=== PATIENT | female | born 1960 | race Caucasian/White ===

== ENCOUNTER 2024-05-04 16:09 | Emergency (ER) | payer MEDICARE, MEDICAID ==
[~2024-05-04] VITALS: Ht 165.1 cm; Wt 54.4 kg
[2024-05-04 16:46] LABS: BILIRUBIN Negative (Negative); BLOOD 2+ (Negative); CLARITY Clear (Clear); COLOR Yellow (Yellow); GLUCOSE Negative (Negative); KETONE Trace (Negative); LEUKO ESTERASE 2+ (Negative); NITRITE Negative (Negative); PH 5.5 (4.5-8.0); SPECIFIC GRAVITY 1.025 (1.001-1.030)
[2024-05-04 16:53] LABS: URINE AMPHETAMINES Negative (1000ng/ml); URINE BARBITURATES Positive (200ng/ml); URINE BENZODIAZEPINES Negative (200ng/ml); URINE CANNABINOIDS (THC) Negative (50ng/ml); URINE COCAINE Negative (300ng/ml); URINE METHADONE Negative (300ng/ml); URINE OPIATES Negative (300ng/ml); URINE PHENCYCLIDINE Negative (25ng/ml)
[2024-05-04 16:55] LABS: BASO # 0.1 10*3/uL (0.0-0.1); BASO % 0.9 % (0.0-1.0); EOS # 0.2 10*3/uL (0.0-0.4); EOS % 2.2 % (1.0-4.0); LYMPH # 1.1 10*3/uL (1.3-4.4); LYMPH % 11.7 % (27.0-41.0); MEAN CELL VOLUME 97.4 fl (81.0-99.0); MEAN CORPUSCULAR HGB 31.8 pg (27.0-31.0); MEAN CORPUSCULAR HGB CONC 32.7 g/dl (33.0-37.0); MEAN PLATELET VOLUME 10.3 fl (9.6-12.3); MONO # 0.8 10*3/uL (0.1-1.0); MONO % 8.7 % (3.0-9.0); NEUT # 7.1 10*3/uL (2.3-7.9); PLATELET COUNT AUTOMATED 376 10*3/uL (130-400); RED BLOOD COUNT 4.21 10*6/uL (4.10-5.10); RED CELL DISTRI WIDTH 15.7 % (0-14.5); WHITE BLOOD COUNT 9.3 10*3/uL (4.8-10.8)
[2024-05-04 16:58] LABS: BACTERIA 1+; RBC 21-30 rbc/hpf (0-2); WBC 21-30 wbc/hpf (0-5)
[2024-05-04 16:59] LABS: HYALINE CAST 0-2
[2024-05-04 17:16] LABS: BUN 15 mg/dl (9-23); CHLORIDE 102 mmol/L (98-107); POTASSIUM 4.3 mmol/L (3.4-5.1)
[2024-05-04 17:21] LABS: ETHYL ALCOHOL < 3.0 mg/dl (<3)
[2024-05-04] MEDS ORDERED: Ciprofloxacin Hydrochloride 500 MG TAB PO ONE (17:40)
[2024-05-04 19:00] VITALS: BP 145/73
[2024-05-04 20:13] VITALS: BP 122/64
[2024-05-04] MEDS ORDERED: FEROSUL325 M1 PO (20:14)
[2024-05-04] MEDS ORDERED: JANUMET 50-1,01 EACH PO (20:15)
[2024-05-04] MEDS ORDERED: DICYCLOMINE HYD10 MG PO (20:18)
[2024-05-04] MEDS ORDERED: [UNRECOGNIZED DRUG - OTHER] PO (20:20)
[2024-05-04] MEDS ORDERED: ASPIRIN ADULT L81 M2 PO (20:22)
[2024-05-04] MEDS ORDERED: AZO D-MANNOSE500 MG PO (20:24)
[2024-05-04] MEDS ORDERED: LEVOTHYROXINE75 MCG PO (20:27)
[2024-05-04] MEDS ORDERED: LEVOXYL88 MCG PO (20:28)
[2024-05-04] MEDS ORDERED: MIRALAX POWDER17 G1 PO (20:30)
[2024-05-04] MEDS ORDERED: MULTIPLE VITAM1 EAC1 PO (20:37)
[2024-05-04] MEDS ORDERED: OMEPRAZOLE MAGN20 MG PO (20:39)
[2024-05-04] MEDS ORDERED: MAGNESIUM OXID500 MG PO (20:44)
[2024-05-04] MEDS ORDERED: SENOKOT-S TABL1 EACH PO (20:45)
[2024-05-04] MEDS ORDERED: Mysoline50 MG PO ×3 (20:50→20:55)
[2024-05-04] MEDS ORDERED: VISINE RED EYE H8 ML OD (20:58)
[2024-05-04] MEDS ORDERED: CLARITIN10 MG PO (21:00)
[2024-05-04] MEDS ORDERED: DULCOLAX10 M1 R (21:02)
[2024-05-04] MEDS ORDERED: HYDROXYZINE PAM25 M1 PO (21:08)
== END 2024-05-04 20:20 | disposition home or self-care (01) ==
LOC: ED 16:09 → 3N 18:42 → ED 20:20
PROVIDERS: Emergency Medicine
DX: F63.81 Intermittent explosive disorder (principal); Z20.822 Contact with and (suspected) exposure to COVID-19; N39.0 Urinary tract infection, site not specified; I10 Essential (primary) hypertension; E78.5 Hyperlipidemia, unspecified; F31.9 Bipolar disorder, unspecified; F41.9 Anxiety disorder, unspecified; E11.9 Type 2 diabetes mellitus without complications; Z88.0 Allergy status to penicillin; Z88.2 Allergy status to sulfonamides; Z88.8 Allergy status to other drugs, medicaments and biological substances

== ENCOUNTER 2024-05-04 19:09 | Inpatient (IN) | payer MEDICARE, MEDICAID ==
[~2024-05-04] VITALS: Ht 157.5 cm; Wt 54.4 kg
[2024-05-04] MEDS ORDERED: LORazepam 2 MG/ML VIAL IM PRN (20:05)
[2024-05-04] MEDS ORDERED: LORazepam 1 MG TAB PO PRN (20:05)
[2024-05-04] MEDS ORDERED: Ziprasidone Mesylate 20 MG VIAL IM PRN (20:10)
[2024-05-04] MEDS ORDERED: FEROSUL325 M1 PO (20:14)
[2024-05-04] MEDS ORDERED: JANUMET 50-1,01 EACH PO (20:15)
[2024-05-04] MEDS ORDERED: DICYCLOMINE HYD10 MG PO (20:18)
[2024-05-04] MEDS ORDERED: [UNRECOGNIZED DRUG - OTHER] PO (20:20)
[2024-05-04] MEDS ORDERED: ASPIRIN ADULT L81 M2 PO (20:22)
[2024-05-04] MEDS ORDERED: AZO D-MANNOSE500 MG PO (20:24)
[2024-05-04] MEDS ORDERED: LEVOTHYROXINE75 MCG PO (20:27)
[2024-05-04] MEDS ORDERED: LEVOXYL88 MCG PO (20:28)
[2024-05-04] MEDS ORDERED: MIRALAX POWDER17 G1 PO (20:30)
[2024-05-04] MEDS ORDERED: MULTIPLE VITAM1 EAC1 PO (20:37)
[2024-05-04] MEDS ORDERED: OMEPRAZOLE MAGN20 MG PO (20:39)
[2024-05-04] MEDS ORDERED: MAGNESIUM OXID500 MG PO (20:44)
[2024-05-04] MEDS ORDERED: SENOKOT-S TABL1 EACH PO (20:45)
[2024-05-04] MEDS ORDERED: Mysoline50 MG PO ×3 (20:50→20:55)
[2024-05-04] MEDS ORDERED: VISINE RED EYE H8 ML OD (20:58)
[2024-05-04] MEDS ORDERED: CLARITIN10 MG PO (21:00)
[2024-05-04] MEDS ORDERED: clonAZEPAM 1 MG TAB PO SCH (21:00)
[2024-05-04] MEDS ORDERED: DIVALPROEX SODIUM 125 MG CAP PO SCH (21:00)
[2024-05-04] MEDS ORDERED: QUETIAPINE FUMARATE 100 MG TAB PO SCH (21:00)
[2024-05-04] MEDS ORDERED: DULCOLAX10 M1 R (21:02)
[2024-05-04] MEDS ORDERED: HYDROXYZINE PAM25 M1 PO (21:08)
[2024-05-04] MEDS ORDERED: MG-AL HYDROXIDE/SIMETICONE 30 ML UDC PO PRN (21:25)
[2024-05-04] MEDS ORDERED: ACETAMINOPHEN 325 MG TAB PO PRN (21:25)
[2024-05-04] MEDS ORDERED: Magnesium Hydroxide 30 ML UDC PO PRN (21:25)
[2024-05-04 21:56] VITALS: BP 117/77
[2024-05-04] MEDS ORDERED: Water, Sterile 10 ML VIAL IM PRN (22:55)
[2024-05-05] MEDS ORDERED: Water, Sterile 10 ML VIAL IM SCH
[2024-05-05] MEDS ORDERED: DEXTROSE 10 % IN WATER 250 ML IV PRN (03:40)
[2024-05-05] MEDS ORDERED: LORATADINE 10 MG TAB PO PRN (03:40)
[2024-05-05] MEDS ORDERED: TETRAHYDROZOLINE OPH PRN (03:40)
[2024-05-05] MEDS ORDERED: BISACODYL 10 MG SUPP R PRN (03:40)
[2024-05-05] MEDS ORDERED: OMEPRAZOLE 20 MG CAP PO SCH (06:00)
[2024-05-05] MEDS ORDERED: Levothyroxine Sodium 88 MCG TAB PO SCH (06:00)
[2024-05-05 07:10] LABS: BASO # 0.1 10*3/uL (0.0-0.1); BASO % 0.9 % (0.0-1.0); EOS # 0.3 10*3/uL (0.0-0.4); EOS % 2.5 % (1.0-4.0); HEMATOCRIT 42.4 % (37.0-47.0); LYMPH # 1.9 10*3/uL (1.3-4.4); LYMPH % 19.3 % (27.0-41.0); MEAN CELL VOLUME 96.6 fl (81.0-99.0); MEAN CORPUSCULAR HGB 31.7 pg (27.0-31.0); MEAN CORPUSCULAR HGB CONC 32.8 g/dl (33.0-37.0); MEAN PLATELET VOLUME 10.4 fl (9.6-12.3); MONO # 1.2 10*3/uL (0.1-1.0); MONO % 11.7 % (3.0-9.0); NEUT # 6.4 10*3/uL (2.3-7.9); NEUT % 65.2 % (47.0-73.0); PLATELET COUNT AUTOMATED 374 10*3/uL (130-400); RED BLOOD COUNT 4.39 10*6/uL (4.10-5.10); RED CELL DISTRI WIDTH 15.5 % (0-14.5); WHITE BLOOD COUNT 9.8 10*3/uL (4.8-10.8)
[2024-05-05] MEDS ORDERED: INSULIN LISPRO 1 UNIT/0.01 ML SQ SCH (07:30)
[2024-05-05 07:35] LABS: CHOLESTEROL 207 mg/dL (<200); LDL CHOLESTEROL 115 mg/dL (9-159); TRIGLYCERIDES 118 mg/dl (<150)
[2024-05-05 07:39] LABS: ALKALINE PHOSPHATASE 111 U/L (46-116); BUN 9 mg/dl (9-23); CHLORIDE 101 mmol/L (98-107); CHOLESTEROL 208 mg/dL (<200); LDL CHOLESTEROL 115 mg/dL (9-159); POTASSIUM 3.4 mmol/L (3.4-5.1); SGPT/ALT 24 U/L (5-49); TOTAL PROTEIN 7.4 gm/dL (6.0-8.0); TRIGLYCERIDES 116 mg/dl (<150)
[2024-05-05 08:00] VITALS: BP 118/86
[2024-05-05 08:01] LABS: VITAMIN D, 25-HYDROXY 33.7 ng/mL (30-100)
[2024-05-05] MEDS ORDERED: VITAMIN E 400 IU CAP PO SCH (09:00)
[2024-05-05] MEDS ORDERED: Dicyclomine Hydrochloride 10 MG CAP PO SCH (09:00)
[2024-05-05] MEDS ORDERED: ASPIRIN ENTERIC COATED 81 MG TAB PO SCH (09:00)
[2024-05-05] MEDS ORDERED: Polyethylene Glycol 3350 17 GM PACKET PO SCH (09:00)
[2024-05-05] MEDS ORDERED: FERROUS SULFATE 325 MG TAB PO SCH (09:00)
[2024-05-05] MEDS ORDERED: PRIMIDONE 50 MG TAB PO SCH ×2 (17:00→21:00)
[2024-05-05 20:00] VITALS: BP 106/72
[2024-05-05] MEDS ORDERED: Docusate Sodium/Senna 1 TAB TAB PO SCH (21:00)
[2024-05-05] MEDS ORDERED: Ziprasidone Mesylate 20 MG VIAL IM PRN (22:30)
[2024-05-06 08:00] VITALS: BP 157/80; BP 99/65
[2024-05-06] MEDS ORDERED: PRIMIDONE 50 MG TAB PO SCH (09:00)
[2024-05-06 20:00] VITALS: BP 95/57
[2024-05-06] MEDS ORDERED: Ciprofloxacin Hydrochloride 500 MG TAB PO SCH (21:00)
[2024-05-07 08:00] VITALS: BP 96/60
[2024-05-07 18:57] VITALS: BP 96/66
[2024-05-08] MEDS ORDERED: Levothyroxine Sodium 75 MCG TAB PO SCH (06:00)
[2024-05-08 08:00] VITALS: BP 93/64
[2024-05-08 19:26] VITALS: BP 121/82
[2024-05-09 08:00] VITALS: BP 99/70
[2024-05-09 20:00] VITALS: BP 101/77
[2024-05-10 08:00] VITALS: BP 119/76
[2024-05-10 18:56] VITALS: BP 119/51
[2024-05-11 08:00] VITALS: BP 94/58
[2024-05-11 20:00] VITALS: BP 107/76
[2024-05-12 07:44] VITALS: BP 123/89
[2024-05-12] MEDS ORDERED: Mysoline50 MG PO ×3 (09:59)
[2024-05-12] MEDS ORDERED: DIVALPROEX SOD125 M1 PO (09:59)
[2024-05-12] MEDS ORDERED: QUETIAPINE FUM100 M3 PO (10:00)
[2024-05-12] MEDS ORDERED: VITAMIN E180 M1 PO (10:00)
[2024-05-12 20:42] VITALS: BP 113/81
[2024-05-13 08:00] VITALS: BP 120/82
[2024-05-13] MEDS ORDERED: ACETAMINOPHEN325 M2 PO (10:12)
[2024-05-13] MEDS ORDERED: ZIPRASIDON20 MG/1 ML IM (10:12)
== END 2024-05-13 10:22 | DRG 885 ==
LOC: EDHOLD 19:09 → 3N 19:09
PROVIDERS: ADMIT Psychiatry & Neurology Psychiatry; ATTEND Psychiatry & Neurology Psychiatry
PROC: GZHZZZZ Group Psychotherapy (ICD-10-PCS; principal; 2024-05-04)
PROC: GZ56ZZZ Individual Psychotherapy, Supportive (ICD-10-PCS; 2024-05-04)
DX: F25.9 Schizoaffective disorder, unspecified (principal); F63.81 Intermittent explosive disorder; E11.65 Type 2 diabetes mellitus with hyperglycemia; N39.0 Urinary tract infection, site not specified; E87.1 Hypo-osmolality and hyponatremia; E03.9 Hypothyroidism, unspecified; B96.89 Other specified bacterial agents as the cause of diseases classified elsewhere; K21.9 Gastro-esophageal reflux disease without esophagitis; Z79.899 Other long term (current) drug therapy; Z79.01 Long term (current) use of anticoagulants; Z79.2 Long term (current) use of antibiotics; Z88.0 Allergy status to penicillin; Z88.2 Allergy status to sulfonamides; Z88.8 Allergy status to other drugs, medicaments and biological substances; Z91.09 Other allergy status, other than to drugs and biological substances